=== PATIENT | female | born 1985 ===

== ENCOUNTER 2017-05-18 09:43 | Emergency (ER) | payer MEDICAID ==
[2017-05-18 09:51] VITALS: BP 142/83; PULSE 84; RESP 20; TEMP 98.7; O2SAT 100
[2017-05-18 09:52] VITALS: BMI 29.9
--- NOTE | 2017-05-18 10:28 | ED PDOC ---
HPI: Abdomen Time Seen by Provider: 05/18/17 09:48 Chief Complaint (Nursing): Abdominal Pain Chief Complaint (Provider): abdominal pain History Per: Patient History/Exam Limitations: no limitations Onset/Duration Of Symptoms: Days (x3) Associated Symptoms: Nausea, Vomiting, Diarrhea, Other (generalized abdominal pain). denies: Urinary Symptoms (dysuria or hematuria) Additional Complaint(s): Wilma Calloway is a 32 year old female, with no past medical history, who presents to the emergency department complaining of abdominal pain associated with nausea, diarrhea, vomiting, and sore throat onset 3 days ago. Patient states she is on menses but denies any other vaginal bleeding. Patient reports that the generalized abdominal pain presented after the diarrhea and vomiting. She denies any dysuria, hematuria, fever or chills. No further medical complaints. PMD: None provided. Past Medical History Reviewed: Historical Data, Nursing Documentation, Vital Signs Vital Signs: Last Vital Signs Temp 98.7 F 05/18/17 09:50 Pulse 84 05/18/17 09:50 Resp 20 05/18/17 09:50 BP 142/83 05/18/17 09:50 Pulse Ox 100 05/18/17 11:37 - Family History Family History: States: Unknown Family Hx - Social History Current smoker - smoking cessation education provided: No Alcohol: None Drugs: Denies - Home Medications Home Medications: Ambulatory Orders Medication Instructions Recorded Ferrous Sulfate 325 mg PO DAILY #0 tab 05/04/15 Cephalexin [Keflex] 250 mg PO QID #20 capsule 05/18/17 - Allergies Allergies/Adverse Reactions: Allergies Allergy/AdvReac Type Severity Reaction Status Date / Time aspirin Allergy RASH Verified 05/18/17 10:02 Review of Systems ROS Statement: Except As Marked, All Systems Reviewed And Found Negative Constitutional: Negative for: Fever, Chills Cardiovascular: Negative for: Chest Pain Respiratory: Negative for: Cough Gastrointestinal: Positive for: Nausea, Vomiting, Abdominal Pain (generalized, after vomiting and diarrhea), Diarrhea Genitourinary Female: Positive for: Vaginal Bleeding (on menses). Negative for : Dysuria, Hematuria, Vaginal Discharge Skin: Negative for: Rash Neurological: Negative for: Weakness, Numbness Physical Exam - Reviewed Nursing Documentation Reviewed: Yes Vital Signs Reviewed: Yes - Physical Exam Appears: Positive for: Well, Non-toxic, No Acute Distress Head Exam: Positive for: ATRAUMATIC, NORMAL INSPECTION, NORMOCEPHALIC Skin: Positive for: Normal Color, Warm, Dry Eye Exam: Positive for: EOMI, Normal appearance, PERRL ENT: Positive for: Normal ENT Inspection, TM Is/Are (wnl), Pharyngeal Erythema. Negative for: Tonsillar Exudate, Tonsillar Swelling Neck: Positive for: Normal, Painless ROM, Supple Cardiovascular/Chest: Positive for: Regular Rate, Rhythm. Negative for: Murmur Respiratory: Positive for: Normal Breath Sounds. Negative for: Respiratory Distress Gastrointestinal/Abdominal: Positive for: Normal Exam, Bowel Sounds, Soft. Negative for: Tenderness, Guarding, Rebound Back: Positive for: Normal Inspection (No midline tenderness). Negative for: L CVA Tenderness, R CVA Tenderness Extremity: Positive for: Normal ROM. Negative for: Deformity Neurologic/Psych: Positive for: Alert, Oriented. Negative for: Motor/Sensory Deficits - Laboratory Results Result Diagrams: 05/18/17 10:31 05/18/17 10:31 - ECG O2 Sat by Pulse Oximetry: 100 (RA) Pulse Ox Interpretation: Normal Medical Decision Making Medical Decision Making: Initial Impression: Initial Plan: --EKG --Comp Metabolic Panel --Lipase --Magnesium --Phosphorus --Urine Dipstick --Urine --CBC w/ differential --Pepcid 20 mg IVP --NS IV 1,000 ml @ 1,000 mls/hr --Zofran Inj 4 mg IVP --NS IV 1,000 ml @ 1,000 mls/hr --Rapid Strep Group A Antigen --reevaluation Scribe Attestation: Documented by Hai Gonzales, acting as a scribe for Elis Victor MD Provider Scribe Attestation: All medical record entries made by the Scribe were at my direction and personally dictated by me. I have reviewed the chart and agree that the record accurately reflects my personal performance of the history, physical exam, medical decision making, and the department course for this patient. I have also personally directed, reviewed, and agree with the discharge instructions and disposition. 10:50AM UA shows negative nitrates but trace leukocytes. negative EKG shows NSR at 76bpm with normal intervals and no ST changes 11:16AM Strep negative. Labs grossly normal. Abdomen soft NT/ND. Patient is tolerating po and has no complaints. She is requesting discharge and work note. Disposition - Clinical Impression Clinical Impression: Gastroenteritis, UTI (urinary tract infection) - Disposition Disposition: Routine/Home Disposition Time: 11:19 Condition: GOOD Additional Instructions: Follow-up with PMD within 2 days. Advance diet slowly. Return to ED if condition worsens. Take full course of antibiotics. Prescriptions: Cephalexin [Keflex] 250 mg PO QID #20 capsule Instructions: Urinary Tract Infection in Women (ED) Forms: [facility] (Lithuanian), [facility] ED School/Work Excuse Print Language: BENINESE
[2017-05-18] MEDS ORDERED: Sodium Chloride 0.9% 1,000 ML IV SCH (10:30)
[2017-05-18 10:40] LABS: BASO % 0.5 % (0.0-2.0); EOS # 0.1 K/uL (0.0-0.7); EOS % 1.1 % (0.0-4.0); HEMATOCRIT 39.1 % (34.0-47.0); LYMPH # 2.2 K/uL (1.0-4.3); LYMPH % 31.2 % (20.0-40.0); MEAN CORPUSCULAR HEMOGLOBIN 24.9 pg (27.0-31.0); MEAN CORPUSCULAR HGB CONC 33.2 g/dL (33.0-37.0); MEAN PLATELET VOLUME 8.7 fl (7.2-11.7); MONO # 0.5 K/uL (0.0-0.8); MONO % 6.4 % (0.0-10.0); NEUT # 4.3 K/uL (1.8-7.0); NEUT % 60.8 % (50.0-75.0); NRBC % 0.1 % (0.0-0.0); RED CELL DISTRIBUTION WIDTH 15.7 % (11.5-14.5); WHITE BLOOD COUNT 7.1 K/uL (4.8-10.8)
[2017-05-18] MEDS: Sodium Chloride 0.9% 1,000 ML IV ONE (10:51)
[2017-05-18 10:59] LABS: ALB/GLOB RATIO 1.2 (1.0-2.1); ALKALINE PHOSPHATASE 75 U/L (38-126); ALT/SGPT 31 U/L (9-52); AST/SGOT 24 U/L (14-36); BILIRUBIN,TOTAL 0.2 mg/dl (0.2-1.3); BLOOD UREA NITROGEN 8 mg/dl (7-17); CALCIUM 9.4 mg/dL (8.4-10.2); CARBON DIOXIDE 26 mmol/L (22-30); CHLORIDE 104 mmol/L (98-107); GFR AFRICAN-AMERICAN > 60; GLUCOSE,RANDOM 109 mg/dL (65-105); LIPASE 135 U/L (23-300); MAGNESIUM 2.1 MG/DL (1.6-2.3); PHOSPHOROUS 2.3 mg/dl (2.5-4.5); POTASSIUM 3.7 MMOL/L (3.6-5.0); SODIUM 141 mmol/l (132-148); TOTAL PROTEIN 7.6 G/DL (6.3-8.2)
--- NOTE | 2017-05-19 10:37 | CARD ---
APPROVED REPORT EKG Measurement Heart [id number] <Conclusion> Normal sinus rhythm Normal ECG
== END 2017-05-18 11:43 | disposition home or self-care (01) ==
LOC: H.ER 09:43
DX: N39.0 Urinary tract infection, site not specified (principal); K52.9 Noninfective gastroenteritis and colitis, unspecified
CPT/HCPCS: 80053; 81025; 83690; 83735; 84100; 85025; 87070; 87430; 93005; 96361; 96374; 96375; 99283; J2405; J7040

== ENCOUNTER 2017-07-15 14:19 | Emergency (ER) | payer MEDICAID ==
[2017-07-15 14:19] VITALS: BMI 29.9
[2017-07-15 14:43] VITALS: BP 131/86; PULSE 72; RESP 16; TEMP 99.1; O2SAT 100
--- NOTE | 2017-07-15 15:00 | ED PDOC ---
HPI: Back Time Seen by Provider: 07/15/17 14:48 Chief Complaint (Nursing): Back Pain Chief Complaint (Provider): Right shoulder and upper back pain History Per: Patient History/Exam Limitations: no limitations Onset/Duration Of Symptoms: Days (x 1 month) Current Symptoms Are (Timing): Still Present Additional Complaint(s): Wilma is a 32 y/o female who presents to the ED complaining of right shoulder and upper back pain for the past month. She has not taken anything for the pain and denies any injury to the area. Patient has not seen her PMD for treatment. She rates current pain as 6/10 and she states for the past month pain comes and goes. 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 No associated chest pain, SOB or HERRERA. PMD: Francine Garcia Past Medical History Reviewed: Historical Data, Nursing Documentation, Vital Signs Vital Signs: Last Vital Signs Temp 99.1 F 07/15/17 14:38 Pulse 72 07/15/17 14:38 Resp 16 07/15/17 14:38 BP 131/86 07/15/17 14:38 Pulse Ox 100 07/15/17 14:38 - Medical History PMH: No Chronic Diseases - Family History Family History: States: No Known Family Hx - Living Arrangements Living Arrangements: With Family - Social History Current smoker - smoking cessation education provided: No Alcohol: None Drugs: Denies - Home Medications Home Medications: Ambulatory Orders Medication Instructions Recorded Ferrous Sulfate 325 mg PO DAILY #0 tab 05/04/15 Cephalexin [Keflex] 250 mg PO QID #20 capsule 05/18/17 Cyclobenzaprine [Cyclobenzaprine 10 mg PO TID PRN #20 tab 07/15/17 HCl] Naproxen [Naprosyn] 500 mg PO BID #20 tab 07/15/17 - Allergies Allergies/Adverse Reactions: Allergies Allergy/AdvReac Type Severity Reaction Status Date / Time aspirin Allergy RASH Verified 07/15/17 14:38 Review of Systems ROS Statement: Except As Marked, All Systems Reviewed And Found Negative Musculoskeletal: Positive for: Shoulder Pain (right), Back Pain (upper right) Physical Exam - Reviewed Nursing Documentation Reviewed: Yes Vital Signs Reviewed: Yes - Physical Exam Appears: Positive for: Well, Non-toxic, No Acute Distress Head Exam: Positive for: ATRAUMATIC, NORMAL INSPECTION, NORMOCEPHALIC Skin: Positive for: Normal Color. Negative for: Rash Eye Exam: Positive for: Normal appearance Neck: Positive for: Painless ROM Cardiovascular/Chest: Positive for: Regular Rate, Rhythm. Negative for: Murmur Respiratory: Positive for: Normal Breath Sounds. Negative for: Respiratory Distress Back: Positive for: Other (tenderness to right posterior shoulder and thoracic region. Shoulder has full ROM) Extremity: Positive for: Normal ROM. Negative for: Pedal Edema, Deformity Neurologic/Psych: Positive for: Alert, Oriented. Negative for: Motor/Sensory Deficits - Laboratory Results Urine POC: Negative - ECG O2 Sat by Pulse Oximetry: 100 (RA) Pulse Ox Interpretation: Normal - Other Rad CXR and right shoulder x-ray X-Ray: Interpreted by Me, Viewed By Me X-Ray Interpretation: no acute finding Medical Decision Making Medical Decision Making: Time: 14:57 Initial Impression: 32 y/o female with upper back and shoulder pain Initial Plan: --Chest XR --Right shoulder XR --Toradol --Flexeril --Urine Test Patient states that she feels better after meds were given. She is aware of all diagnostic testing results, all questions answered. Prescriptions provided for Naprosyn and Flexeril. Patient was advised to follow-up with primary doctor in 2 -3 days. Scribe Attestation: Documented by Jose F Singh, acting as a scribe for Rylie Brar PA-C Provider Scribe Attestation: All medical record entries made by the Scribe were at my direction and personally dictated by me. I have reviewed the chart and agree that the record accurately reflects my personal performance of the history, physical exam, medical decision making, and the department course for this patient. I have also personally directed, reviewed, and agree with the discharge instructions and disposition. Disposition - Clinical Impression Clinical Impression: Shoulder strain, Strain of thoracic region - Patient ED Disposition Is Patient to be Admitted: No Counseled Patient/Family Regarding: Studies Performed, Diagnosis, Need For Followup, Rx Given - Disposition Referrals: Francine Garcia MD [Family Provider] - Disposition: Routine/Home Disposition Time: 16:46 Condition: STABLE Additional Instructions: Take prescription medications as directed as needed for pain. Follow-up with primary doctor in 2-3 days. Prescriptions: Cyclobenzaprine [Cyclobenzaprine HCl] 10 mg PO TID PRN #20 tab PRN Reason: Muscle Spasm Naproxen [Naprosyn] 500 mg PO BID #20 tab Instructions: Thoracic Pain (ED), Shoulder Sprain (ED) Forms: [employer] (Sierra Leonean) Print Language: KUWAITI
--- NOTE | 2017-07-15 15:57 | RAD ---
HISTORY: upper back pain COMPARISON: No prior. TECHNIQUE: Chest PA and lateral FINDINGS: LUNGS: No active pulmonary disease. PLEURA: No significant pleural effusion identified. No pneumothorax apparent. CARDIOVASCULAR: Normal. OSSEOUS STRUCTURES: No significant abnormalities. VISUALIZED UPPER ABDOMEN: Normal. OTHER FINDINGS: None. IMPRESSION: No active disease.
--- NOTE | 2017-07-15 15:57 | RAD ---
PROCEDURE: Radiographs of the Right Shoulder HISTORY: pain COMPARISON: No prior. FINDINGS: BONES: Normal. No fracture. JOINTS: Normal. Glenohumeral and acromioclavicular joints preserved. No osteoarthritis. SOFT TISSUES: Normal. OTHER FINDINGS: None. IMPRESSION: Normal radiographs of the right shoulder.
== END 2017-07-15 17:11 | disposition home or self-care (01) ==
LOC: H.ER 14:19
DX: S46.911A Strain of unspecified muscle, fascia and tendon at shoulder and upper arm level, right arm, initial encounter (principal); S23.3XXA Sprain of ligaments of thoracic spine, initial encounter; X50.3XXA Overexertion from repetitive movements, initial encounter; Y92.89 Other specified places as the place of occurrence of the external cause
CPT/HCPCS: 71020; 73030; 81025; 96372; 99282; J1885

== ENCOUNTER 2018-09-10 13:56 | Emergency (ER) | payer MEDICAID ==
[2018-09-10 13:57] VITALS: BMI 29.9
--- NOTE | 2018-09-10 15:33 | ED PDOC ---
Upper Extremity Pain/Injury Time Seen by Provider: 09/10/18 14:12 Chief Complaint (Nursing): Back Pain Chief Complaint (Provider): Shoulder Pain History Per: Patient History/Exam Limitations: no limitations Onset/Duration Of Symptoms: Days (several ) Current Symptoms Are (Timing): Better Quality: Dull (Pt presents to the ED complaining of several days of muscle pain in her shoulders without affecting ROM; pt indicates that she is fully neurolgically intact; strength is unaffected; Pt denies recent illness, fever, HTN, trauma or other medications) Past Medical History Reviewed: Historical Data, Nursing Documentation, Vital Signs Vital Signs: Last Vital Signs Temp 98.3 F 09/10/18 14:02 Pulse 89 09/10/18 14:02 Resp 16 09/10/18 14:02 BP 136/91 H 09/10/18 14:02 Pulse Ox 100 09/10/18 14:02 - Family History Family History: States: Unknown Family Hx - Immunization History Hx Tetanus Toxoid Vaccination: No Hx Influenza Vaccination: Yes Hx Pneumococcal Vaccination: No - Home Medications Home Medications: Ambulatory Orders Medication Instructions Recorded Ferrous Sulfate 325 mg PO DAILY #0 tab 05/04/15 Cephalexin [Keflex] 250 mg PO QID #20 capsule 05/18/17 Cyclobenzaprine [Cyclobenzaprine 10 mg PO TID PRN #20 tab 07/15/17 HCl] Naproxen [Naprosyn] 500 mg PO BID #20 tab 07/15/17 Ibuprofen [Motrin] 400 mg PO QID #40 tab 09/10/18 - Allergies Allergies/Adverse Reactions: Allergies Allergy/AdvReac Type Severity Reaction Status Date / Time aspirin Allergy RASH Verified 09/10/18 14:02 Review of Systems ROS Statement: Except As Marked, All Systems Reviewed And Found Negative Musculoskeletal: Positive for: Shoulder Pain Physical Exam - Reviewed Nursing Documentation Reviewed: Yes Vital Signs Reviewed: Yes - Physical Exam Appears: Positive for: Well, Non-toxic, No Acute Distress. Negative for: Uncomfortable Head Exam: Positive for: ATRAUMATIC, NORMAL INSPECTION Skin: Positive for: Normal Color, Warm, Dry. Negative for: Diaphoresis, Pallor, Rash Eye Exam: Positive for: Normal appearance. Negative for: Nystagmus, Periorbital swelling, Periorbital tenderness ENT: Positive for: Normal ENT Inspection Neck: Positive for: Normal, Painless ROM, Supple. Negative for: Decreased ROM Cardiovascular/Chest: Positive for: Regular Rate, Rhythm Respiratory: Positive for: Normal Breath Sounds Pulses-Carotid (L): 2+ Pulses-Carotid (R): 2+ Pulses-Radial (L): 2+ Pulses-Radial (R): 2+ Back: Positive for: Normal Inspection. Negative for: L CVA Tenderness, R CVA Tenderness, Vertebral Tenderness, Decreased ROM, Muscle Spasm Extremity: Positive for: Normal ROM. Negative for: Tenderness, Pedal Edema, Calf Tenderness, Capillary Refill, Deformity, Swelling - ECG O2 Sat by Pulse Oximetry: 100 Medical Decision Making Medical Decision Making: muscle soreness tx with flexeril and toradol pt expresses great releif after mediation pt is stable for discharge Disposition - Clinical Impression Clinical Impression: Upper back strain, Shoulder strain - Patient ED Disposition Is Patient to be Admitted: No Doctor Will See Patient In The: Office Counseled Patient/Family Regarding: Diagnosis, Rx Given - Disposition Disposition: Routine/Home Disposition Time: 15:35 Condition: STABLE Prescriptions: Ibuprofen [Motrin] 400 mg PO QID #40 tab Forms: [employer] (Guamanian)
[2018-09-10 16:56] VITALS: BP 128/77; PULSE 80; RESP 18; TEMP 98.1; O2SAT 98
== END 2018-09-10 16:49 | disposition home or self-care (01) ==
LOC: H.ER 13:56
DX: S46.919A Strain of unspecified muscle, fascia and tendon at shoulder and upper arm level, unspecified arm, initial encounter (principal); S29.012A Strain of muscle and tendon of back wall of thorax, initial encounter; Y92.89 Other specified places as the place of occurrence of the external cause
CPT/HCPCS: 81025; 96372; 99283; J1885